=== PATIENT | male | born 1985 | race Caucasian/White ===

== ENCOUNTER 2018-05-07 02:44 | Emergency (ER) | payer SELFPAY ==
[~2018-05-07] VITALS: Ht 180.3 cm; Wt 74.0 kg
[2018-05-07] MEDS ORDERED: ACETAMINOPHEN 325MG TABLET PO ONE (07:15)
[2018-05-07 08:20] VITALS: BP 114/71
== END 2018-05-07 08:41 | disposition home or self-care (01) ==
LOC: ER 02:44
DX: S02.2XXA Fracture of nasal bones, initial encounter for closed fracture (principal); R04.0 Epistaxis; S00.83XA Contusion of other part of head, initial encounter; R51 Headache; M79.89 Other specified soft tissue disorders; R03.0 Elevated blood-pressure reading, without diagnosis of hypertension; F10.129 Alcohol abuse with intoxication, unspecified; Y90.9 Presence of alcohol in blood, level not specified; Z71.41 Alcohol abuse counseling and surveillance of alcoholic; X58.XXXA Exposure to other specified factors, initial encounter; Y93.9 Activity, unspecified; Y92.410 Unspecified street and highway as the place of occurrence of the external cause; S60.222A Contusion of left hand, initial encounter; Y93.89 Activity, other specified
CPT/HCPCS: 70450; 70486; 73130; 99284; Z7610